=== PATIENT | female | born 1965 | race Caucasian/White ===

== ENCOUNTER → 2020-10-08 01:43 | Outpatient (CLI) | payer BC, SELFPAY ==
[2020-10-08 18:53] LABS: SARS-CoV-2 RNA PCR Negative
== END ==
PROVIDERS: PCP Internal Medicine; Visit Provider Internal Medicine Gastroenterology
DX: Z01.812 Encounter for preprocedural laboratory examination (principal); Z20.822 Contact with and (suspected) exposure to COVID-19
CPT/HCPCS: C9803; U0003; U0005

== ENCOUNTER 2020-10-11 01:33 | Day surgery (SDC) | payer BC, SELFPAY ==
[2020-09-26 14:20] VITALS: BMI 26.6
[2020-10-11 07:18] VITALS: BP 119/83; PULSE 75; RESP 16; TEMP 36.1; O2SAT 98; BMI 27.0
[2020-10-11] MEDS: LACTATED RINGERS 1,000 ML 150 ML IV CONT (07:25)
--- NOTE | 2020-10-11 07:27 | PM.HPGS ---
History of Present Illness History of Present Illness Consent: Risks, benefits, and alternatives have been discussed and questions answered. Patient agrees to proceed with procedure. Chief complaint: neoplasm screening Narrative: Sandrine Cantrell is a 55 year old female referred for colon cancer screen Review of Systems Review of Systems: All systems reviewed & are unremarkable except as noted in HPI and below PMFSH Past Medical History Medical History (Updated 10/11/20 @ 07:28 by Mohan Olguin MD) Aneurysm delivery delivered Family History Family History Mother Hypertension Father Heart disease Social History Social History Smoking packs per day: 1 Smoking cigarettes per day: 20.0 Years smoked: 25 Smoking pack-years: 25.00 Smoking status: Former smoker Tobacco type: cigarettes Alcohol intake: current Drinks per week: 1 Substance use: never Substance use type: does not use Living arrangements: with family Gender identity (if verbalized by the patient): Female Spiritual care concerns: No Agree to blood products: Yes Meds Home Medications and Allergies Home Medications Medication Instructions Recorded Confirmed Type No Home Medications 10/11/20 10/11/20 History Allergies Allergy/AdvReac Type Severity Reaction Status Date / Time No Known Allergies Allergy Verified 10/11/20 07:17 Vital Signs Vital Signs - 24 hr 10/11/20 07:18 Temperature 36.1 C L Pulse Rate 75 Respiratory Rate 16 Blood Pressure 119/83 Pulse Oximetry 98 Exam Resp: Auscultation: clear to auscultation bilaterally Cardio: Rate: regular rate Rhythm: regular rhythm GI: GI Palp: Yes Soft to palpation and No Tenderness to palpation present (GI) Assessment and Plan Assessment and plan (1) Colon cancer screening: Code(s): Z12.11 - Encounter for screening for malignant neoplasm of colon Status: Acute Assessment and Plan: Colonoscopy with possible biopsy or polypectomy or cautery or injection of substances.
--- NOTE | 2020-10-11 07:37 | WPDANESEPPF ---
Anes - Initial Pre Proc Eval Procedure: Operation Date: 10/11/20 08:30 Proposed Procedures p Screening Colonoscopy - Mohan Olguin MD Date/Time: 10/11/20 07:37 Surgeon: Mohan Olguin MD Pre Op Diagnosis: neoplasm screening Patient Data Age: 55 Gender: F Height: 5 ft 3 in Weight: 69.2 kg Last Vital Signs Temp 97 F L 10/11/20 07:18 Pulse 75 10/11/20 07:18 Resp 16 10/11/20 07:18 BP 119/83 10/11/20 07:18 Pulse Ox 98 10/11/20 07:18 Allergies Allergy/AdvReac Type Severity Reaction Status Date / Time No Known Allergies Allergy Verified 10/11/20 07:17 Home Medications Medication Instructions Recorded Confirmed Type No Home Medications 10/11/20 10/11/20 History Patient hx anesthesia problems: none Family hx anesthesia problems: none PMFSH Past Medical History Medical History (Updated 10/11/20 @ 07:28 by Mohan Olguin MD) Aneurysm delivery delivered Family History Family History Mother Hypertension Father Heart disease Social History Social History Smoking packs per day: 1 Smoking cigarettes per day: 20.0 Years smoked: 25 Smoking pack-years: 25.00 Smoking status: Former smoker Tobacco type: cigarettes Alcohol intake: current Drinks per week: 1 Substance use: never Substance use type: does not use Living arrangements: with family Gender identity (if verbalized by the patient): Female Spiritual care concerns: No Agree to blood products: Yes Anes - Eval Final PreProcedure Day of Procedure 10/11/20 07:37 Patient weight: normal Heart: regular rate and rhythm Lungs: clear to auscultation Airway: Mallampati scale class II Neurological: alert and oriented Last oral intake: >/= 8 hours ASA classification: II Emergent: no Anesthetic plan: proceed Anesthesia type and monitoring: general GIVS and standard monitoring Informed Consent: The patient's anesthetic plan and its attendant risks and benefits were discussed with the patient/family/POA. Questions were solicited and answers provided to the satisfaction of the patient/family/POA.
[2020-10-11 08:41] VITALS: BP 109/86; PULSE 63; RESP 17; O2SAT 98
[2020-10-11 08:51] VITALS: BP 113/83; PULSE 67; RESP 19; O2SAT 98
[2020-10-11 09:01] VITALS: BP 124/87; PULSE 60; RESP 18; O2SAT 100
== END 2020-10-11 09:11 | disposition home or self-care (01) ==
PROVIDERS: PCP Internal Medicine; Visit Provider Internal Medicine Gastroenterology
PROC: 0DJD8ZZ Inspection of Lower Intestinal Tract, Via Natural or Artificial Opening Endoscopic (ICD-10-PCS; CPT 45378; principal; 2020-10-11 08:30)
DX: Z12.11 Encounter for screening for malignant neoplasm of colon (principal); Z87.891 Personal history of nicotine dependence
CPT/HCPCS: 45378; J2704; J7120

== ENCOUNTER 2023-09-01 08:04 | Emergency (ER) | payer BC, SELFPAY ==
--- NOTE | 2023-09-01 08:09 | ED.GENADULT ---
HPI - General Adult General Chief complaint: Upper Respiratory Infection Stated complaint: cold symptoms Time Seen by Provider: 09/01/23 08:09 Source: patient Mode of arrival: ambulatory Limitations: no limitations History of Present Illness HPI narrative: 58-year-old female patient reports to clinic today with complaints of sore throat that started on Saturday. She reports having a fever of 100.8 ? F last night and has not taken any medication for the fever. Patient also reports symptoms of runny nose, cough, and ear discomfort. Related Data Home Medications Medication Instructions Recorded Confirmed No Home Medications 09/01/23 09/01/23 Allergies Allergy/AdvReac Type Severity Reaction Status Date / Time No Known Allergies Allergy Verified 09/01/23 08:17 Review of Systems Review of Systems: CONSTITUTIONAL: positive fever, chills, and sweats. EYES: Denies visual changes, redness, or discharge. ENT: positive rhinorrhea, congestion, sore throat, and otalgia. CARDIOVASCULAR: Denies chest pain, palpitations, or edema. RESPIRATORY: positive cough, negative dyspnea. GASTROINTESTINAL: Denies abdominal pain, nausea, vomiting, or diarrhea. GENITOURINARY: Denies dysuria or hematuria. SKIN: Denies rash or itching. MUSCULOSKELETAL: Denies back pain, joint pain, or myalgia. NEUROLOGIC: Denies headache, numbness, or weakness. PSYCHIATRIC: Denies anxiety or depression. FORMERLY [facility], 1928–1983 Past Medical History Medical History Aneurysm (~1998) Brain delivery delivered Screening mammogram, encounter for Surgical History Surgical History Delivery by section x 2 H/O colonoscopy (10/11/20) normal H/O LEEP (08/17/04) History of brain surgery (~1998) Brain Aneurysm Family History Family History Mother Hypertension Acute myocardial infarction Father Heart disease Hypertension Sibling Multiple sclerosis brother Social History Social History Smoking packs per day: 1 Smoking cigarettes per day: 20.0 Years smoked: 25 Smoking pack-years: 25.00 Smoking status: Former smoker Tobacco type: cigarettes Alcohol intake: current Drinks per week: 1 Alcohol use details: Occasional Substance use: never Substance use type: does not use Lack of Transportation: No Lack of Food: Never True Current Housing: I Have Housing Concerned About Future Housing: No Difficulty Paying Gas/Electric Bills: No Difficulty Paying for Meds: No Currently Unemployed: No Education: High School Diploma/GED Difficulty w/ Childcare or Family Care: Decline to Answer Living arrangements: with family Additional living arrangements comments: Occupation/Education: occupation 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 There is no relevant family history pertinent to the presenting complaint. Exam Narrative: GENERAL: Well-appearing, well-nourished, and in no acute distress. HEAD: Normocephalic, atraumatic. EYES: PERRLA and EOMI. ENT: Nares clear, positive rhinorrhea and epistaxis, bilateral turbinates are edematous. Mucous membranes moist and pink. bilateral ear canals are free of erythema, edema, and TMs are pearly nesbitt without effusion. NECK: Supple. positive submandibular lymphadenopathy CHEST: Clear to auscultation. No respiratory distress. HEART: Regular rate and rhythm. No murmur heard. Normal perip
[2023-09-01 08:18] VITALS: BP 150/95; PULSE 112; RESP 18; TEMP 37.4; O2SAT 96
== END 2023-09-01 08:58 | disposition home or self-care (01) ==
PROVIDERS: Emergency Provider Nurse Practitioner Family; PCP Family Medicine
DX: J02.9 Acute pharyngitis, unspecified (principal); Z20.822 Contact with and (suspected) exposure to COVID-19; F17.210 Nicotine dependence, cigarettes, uncomplicated
CPT/HCPCS: 87081; 87426; 87804; 87880; 99213; G0463

== ENCOUNTER 2023-12-24 06:16 | Emergency (ER) | payer BC, SELFPAY ==
[2023-12-24] VITALS (12 sets, daily range): BP systolic 150–163; BP diastolic 89–105; PULSE 56–80; RESP 15–22; TEMP 36.6; O2SAT 96–100
--- NOTE | 2023-12-24 07:11 | ECG_ITS ---
[facility] [address] Test Date: 2023-12-24 Pat Name: Sandrine Cantrell Department: Room: Gender: F Actuarial Technician: : 1965 Requested By: Clemente Coleman Order Number: [id number] [id number] MD: Carlos Hernandez M.D. Measurements Intervals [place] Rate: P: MD: QRS: QRSD: T: QT: QTc: Interpretive Statements SINUS BRADYCARDIA LOW QRS VOLTAGE BORDERLINE ECG Electronically Signed On 01-03-2024 08:49:48 CDT by Carlos Hernandez M.D.
--- NOTE | 2023-12-24 07:57 | ED.GENADULT ---
HPI - General Adult General Chief complaint: Unspecified Stated complaint: indigestion, a lot lately Time Seen by Provider: 12/24/23 06:54 History of Present Illness HPI narrative: 58-year-old female presented to the emergency department for evaluation intermittent chest pain. patient states that has been occurring intermittently over the last 3 weeks she had an episode on and had an episode yesterday. Patient states that this happens after eating. Patient denies any prior history of heartburn, gastritis, ulcers and denies any cardiac history and denies any prior history of PE or DVT. Patient does have a history of a brain aneurysm but denies any headache with this. Patient describes a burning chest tightness after eating. Related Data Allergies Allergy/AdvReac Type Severity Reaction Status Date / Time No Known Allergies Allergy Verified 09/01/23 08:17 Review of Systems Review of Systems: All systems reviewed & are unremarkable except as noted in HPI and below PMFSH Past Medical History Medical History Aneurysm (~1998) Brain delivery delivered Screening mammogram, encounter for Surgical History Surgical History Delivery by section x 2 H/O colonoscopy (10/11/20) normal H/O LEEP (08/17/04) History of brain surgery (~1998) Brain Aneurysm Family History Family History Mother Hypertension Acute myocardial infarction Father Heart disease Hypertension Sibling Multiple sclerosis brother Social History Social History Smoking packs per day: 1 Smoking cigarettes per day: 20.0 Years smoked: 25 Smoking pack-years: 25.00 Smoking status: Former smoker Tobacco type: cigarettes Alcohol intake: current Drinks per week: 1 Alcohol use details: Occasional Substance use: never Substance use type: does not use Lack of Transportation: No Lack of Food: Never True Current Housing: I Have Housing Concerned About Future Housing: No Difficulty Paying Gas/Electric Bills: No Difficulty Paying for Meds: No Currently Unemployed: No Education: High School Diploma/GED Difficulty w/ Childcare or Family Care: Decline to Answer Living arrangements: with family Additional living arrangements comments: Occupation/Education: occupation 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 HEAD: normocephalic, atraumatic. EYES: PERRLA/EOMI, conjunctivae clear. NOSE: Normal no drainage EARS:TMS clear with good light reflex. THROAT: Pharynx clear, no exudate. NECK: Supple. No adenopathy, no masses. RESPIRATORY: Airway patent, respirations nonlabored. Clear to auscultation bilaterally, no rales, rhonchi, wheezing. CARDIOVASCULAR: Regular rate and rhythm without murmurs rubs or gallops. ABDOMINAL: Soft, nontender, nondistended, normal bowel sounds . No epigastric tenderness to palpation MUSCULOSKELETAL: Moves all extremities. Strength/ROM intact, No edema, No calf tenderness. NEURO: Alert. Cranial nerves II through XII intact. Good gait. Good coordination SKIN: Warm, dry. Normal Color Course Course Emergency Course: patient felt improved with treatment and patient had negative serial troponins. Patient was encouraged close follow-up with her primary care physician. Vital Signs Vital signs: Vital Signs Temperature 97.9 F 12/24/23 06:23 Pulse Rate 72 12/24/23 06:23 Respiratory Rate 19 12/24/23 06:23 Bloo
[2023-12-24] MEDS: PANTOPRAZOLE SODIUM IV 40 MG VIAL IV PUSH (08:21)
[2023-12-24 08:29] LABS: Basophils Percent Auto 0.8 % (0.2-1.2); Eosinophils Absolute Auto 0.1 K/mm3 (0-0.3); Hematocrit 47.9 % (37.0-47.0); Hemoglobin 15.8 g/dL (12.0-15.0); Lymphocytes Absolute Auto 1.14 K/mm3 (0.9-3.2); Lymphocytes Percent Auto 28.9 % (18.3-44.2); Mean Corpuscular Volume 94.1 fl (80-100); Mean Platelet Volume 10.2 fl (7.4-10.4); Monocytes Absolute Auto 0.3 K/mm3 (0.1-0.6); Monocytes Percent Auto 8.1 % (2.6-8.5); Neutrophils Absolute Auto 2.4 K/mm3 (1.3-6.7); Neutrophils Percent Auto 60.2 % (45.5-73.1); Platelet Count Result 232 k/mm3 (150-375); Red Blood Count 5.09 M/mm3 (4.2-5.4); Red Cell Distribution Width 13.2 % (11.5-14.5); White Blood Count 3.9 K/mm3 (4.5-10.0)
[2023-12-24 08:40] LABS: INR 0.9
[2023-12-24 08:41] LABS: Lactic Acid Reflex 0.6 mmol/L (0.7-2.0); Partial Thromboplastin Time 28.1 Seconds (22.3-36.8)
[2023-12-24 08:42] LABS: Alanine Aminotransferase 23 U/L (6-35); Albumin Level 4.7 g/dL (3.5-5.1); Alkaline Phosphatase 66 U/L (38-126); Anion Gap 4 mmol/L (4-12); Aspartate Amino Transferase 31 U/L (14-36); Bilirubin,Total 0.7 mg/dL (0.2-1.3); Blood Urea Nitrogen 17 mg/dL (7-17); Carbon Dioxide 28 mmol/L (22-30); Chloride 108 mmol/L (98-107); Estimated CRCL calculation 61 ml/min; Estimated Glomerular Filt Rate > 60; Glucose 103 mg/dL (65-110); Lipase 141 U/L (23-300); Sodium 140 mmol/L (137-145)
[2023-12-24 08:58] LABS: Troponin I < 0.012 ng/mL (0.000-0.034)
--- NOTE | 2023-12-24 11:30 | ECG_ITS ---
SEE SCANNED COPY FOR CONFIRMED REPORT MTDD
[2023-12-24 12:26] LABS: Troponin I < 0.012 ng/mL (0.000-0.034)
== END 2023-12-24 13:22 | disposition home or self-care (01) ==
PROVIDERS: Emergency Provider Emergency Medicine; PCP Family Medicine
DX: R10.13 Epigastric pain (principal); Z87.891 Personal history of nicotine dependence; R94.31 Abnormal electrocardiogram [ECG] [EKG]
CPT/HCPCS: 36415; 80053; 83605; 83690; 84484; 85025; 85610; 85730; 93005; 96374; 99284; C9113